=== PATIENT | female | born 1975 | race Caucasian/White ===

== ENCOUNTER 2024-12-03 11:43 | Outpatient (OUT) | payer OTHER, SELFPAY ==
--- NOTE | 2024-12-03 11:54 | XR_ITS ---
[place] [id number] Patient Name: HAFSA LUNSFORD MRN: [id number] date: 1975 Sex: F Assigned Patient Location: [facility] Current Patient Location: [facility] Accession/Order Number: [id number] Exam Date: 12/03/2024 16:19 Report Date: 12/03/2024 16:21 At the request of: DAKOTA FRIEND DPDeyanira Procedure: XR ankle RT min 3V RIGHT ANKLE - 3 views CLINICAL HISTORY: Pain COMPARISON: None FINDINGS: [id number] degenerative changes with ossific spurring. No fracture or dislocation identified. Moderate plantar calcaneal enthesopathy noted. Minimal posterior calcaneal enthesopathy. Mild soft tissue swelling identified, nonspecific. XR/XR ankle RT min 3V IMPRESSION: Degenerative changes. Negative acute fracture or dislocation Impression dictated by: Miguel Christopher M.D. 12/03/2024 4:21 PM Dictation Location: [place] [id number] Electronically authenticated by: [id number] Date: 12/03/2024 16:21
== END 2024-12-03 11:44 | disposition home or self-care (01) ==
LOC: RAD 11:48
PROVIDERS: Visit Provider Podiatrist Foot & Ankle Surgery
DX: M25.571 Pain in right ankle and joints of right foot (principal)
CPT/HCPCS: 73610